=== PATIENT | male | born 1980 | race Caucasian/White ===

== ENCOUNTER 2021-08-14 20:55 | Emergency (ER) | payer MEDICAID ==
[~2021-08-14] VITALS: Ht 175.3 cm; Wt 77.1 kg
--- NOTE | 2021-08-14 22:00 | NUR ---
PATIENT BIBRA40 C/O SUICIDAL IDEATION, PLANS TO DROWN HIMSELF IN [place]. WANT TO BE ADMITTED VOLUNTARILY. PATIENT IS A/O X 3-4, RR EVEN AND UNLABORED, NO SOB NOTED.
[2021-08-14] MEDS ORDERED: IV NS 0.9% 1,000 ML BAG IV ONE (22:30)
[2021-08-14] MEDS ORDERED: LORAZEPAM 1 MG TABLET PO ONE (22:30)
--- NOTE | 2021-08-14 22:31 | NUR ---
COVID SWAB COLLECTED AND SENT TO LAB
[2021-08-14] MEDS ORDERED: LORAZEPAM 1 MG TABLET ONE (22:47)
[2021-08-14 22:49] LABS: BASOPHILS % (AUTO) 0.3 % (0.0-2.0); EOSINOPHILS % (AUTO) 0.1 % (0.0-6.0); HEMATOCRIT 44 % (39-51); HEMOGLOBIN 14.3 g/dL (13.5-17.5); LYMPHOCYTES # (AUTO) 2.1 K/uL (0.8-4.8); LYMPHOCYTES % (AUTO) 31.6 % (20.0-44.0); MEAN CORPUSCULAR HGB CONC 33 g/dl (31.0-36.0); MEAN CORPUSCULAR VOLUME 84 fL (80-96); MONOCYTES # (AUTO) 0.8 K/uL (0.1-1.30); MONOCYTES % (AUTO) 11.9 % (2.0-12.0); NEUTROPHILS # (AUTO) 3.7 K/uL (1.8-8.9); NEUTROPHILS % (AUTO) 56.1 % (43.0-81.0); PLATELET COUNT (AUTO) 281 K/uL (150-450); RED BLOOD CELL COUNT(AUTO) 5.24 MIL/uL (4.5-6.0); WHITE BLOOD COUNT (AUTO) 6.5 K/uL (4.3-11.0)
--- NOTE | 2021-08-15 02:16 | NUR ---
URINE COLLECTED SEND TO LAB
[2021-08-15 03:31] LABS: BILIRUBIN,URINE NEGATIVE (NEGATIVE); COLOR,URINE YELLOW (YELLOW); LEUKOCYTE ESTERASE ,URINE NEGATIVE (NEGATIVE); NITRITE, URINE NEGATIVE (NEGATIVE); PROTEIN,URINE NEGATIVE (NEGATIVE); UGLUCOSE NEGATIVE (NEGATIVE); UROBILINOGEN,URINE 0.2 EU/dL (0.2)
[2021-08-15] MEDS ORDERED: LORAZEPAM 1 MG TABLET PO ONE (04:00)
[2021-08-15] MEDS ORDERED: IV NS 0.9% 1,000 ML BAG IV ONE (04:00)
[2021-08-15] MEDS ORDERED: LORAZEPAM 1 MG TABLET ONE (04:23)
--- NOTE | 2021-08-15 07:42 | NUR ---
THE PATIENT IS RECEIVED IN ER BED #13. ALERT AND ORIENTED X3. DENIES PAIN. IN ROOM AIR AND DENIES SOB. RESPIRATION REGULAR AND UNLABORED. WILL CONTINUE TO MONITOR THE PATIENT.
--- NOTE | 2021-08-15 09:10 | NUR ---
VERBAL ORD TO REDRAW, CHEM SPEC, PENDING, REDRAWN AT 0900
--- NOTE | 2021-08-15 09:53 | NUR ---
SHANTI REYNA AT BEDSIDE, PATIENT VERBALIZES HE IS NOT SUICIDAL ANYMORE AND WOULD LIKE TO GO TO [place] FOR A "BUSINESS", MADE MD AWARE, SW WILL PROVIDE BUS PASS.
--- NOTE | 2021-08-15 10:05 | NUR ---
PROVIDED W [facility] DIRECTIONS GOING TO [place]
--- NOTE | 2021-08-15 10:11 | NUR ---
SW met with pt. He stated that he is no longer suicidal. Pt. expressed he wanted to go to [place]. SW provided pt. with TAP card and directions to [place]. Pt. signed homeless waiver and its placed in chart.
[2021-08-15 10:13] LABS: ALANINE AMINOTRANSFERASE 29 U/L (12-78); ALBUMIN 3.8 g/dL (3.4-5.0); ALKALINE PHOSPHATASE 55 U/L (46-116); ASPARTATE AMINOTRANSFERASE 22 U/L (15-37); BILIRUBIN,DIRECT 0.1 mg/dL (0.0-0.2); BILIRUBIN,TOTAL 0.3 mg/dL (0.2-1.0); CALCIUM, SERUM 8.8 mg/dL (8.5-10.1); CARBON DIOXIDE 29 mmol/L (21-32); CHLORIDE 103 mmol/L (98-107); CREATININE 1.2 mg/dL (0.6-1.3); GLUCOSE 68 mg/dL (74-106); POTASSIUM 3.7 mmol/L (3.5-5.1); SODIUM SERUM 141 mmol/L (136-145); TOTAL PROTEIN, SERUM 6.9 g/dL (6.4-8.2); UREA NITROGEN, BLOOD 12 mg/dL (7-18)
[2021-08-15 10:14] LABS: ACETAMINOPHEN < 10 ug/ml (10-30)
--- NOTE | 2021-08-15 10:46 | NUR ---
Note luis eduardo in [facility] - 08/15/21 at 1048 by TRAV THE PATIENT IS ALERT AND ORIENTED X4. DENIES PAIN. IN ROOM AIR AND DENIES SOB. RESPIRATION REGULAR AND UNLABORED. DENIES SI.HI. THE PATIENT HAS STABLE GAIT. THE PATIENT IS DISCHARGED IN STABLE CONDITON.
[2021-08-15 10:57] LABS: ALCOHOL, BLOOD < 3 mg/dL (0-0)
--- NOTE | 2021-08-15 11:03 | NUR ---
THE PATIENT IS ALERT AND ORIENTED X4. DENIES PAIN. IN ROOM AIR AND DENIES SOB. RESPIRATION REGULAR AND UNLABORED. DENIES SI.HI. THE PATIENT HAS STABLE GAIT. THE PATIENT IS DISCHARGED IN STABLE CONDITON.
[2021-08-15 11:04] VITALS: BP 113/90
== END 2021-08-15 11:05 | disposition home or self-care (01) ==
LOC: ER 21:01
DX: R45.851 Suicidal ideations (principal); R00.0 Tachycardia, unspecified; Z82.49 Family history of ischemic heart disease and other diseases of the circulatory system; Z59.02 Unsheltered homelessness; Z20.822 Contact with and (suspected) exposure to COVID-19
CPT/HCPCS: 36415; 80048; 80076; 80143; 80307; 80320; 81003; 84484; 85025; 87426; 93005; 96360; 99285; C9803; J7030 ×2; G0480

== ENCOUNTER 2021-08-15 20:50 | Emergency (ER) | payer MEDICAID ==
[~2021-08-15] VITALS: Ht 175.3 cm; Wt 77.1 kg
--- NOTE | 2021-08-15 22:30 | NUR ---
PATIENT DAVINA FROM [facility] C/O SI WITH PLAN TO DROWN SELF IN [place] REQUESTING VOL. ADMISSION TO [facility]. PATIENT IS A/O X 4, RR EVEN AND UNLABORED, NO SOB NOTED. PATIENT HAS STEADY GAIT. PATIENT SKIN NOTED TO BE INTACT. PATIENT PLACED IN BED WITH SITTER AT BEDSIDE.
--- NOTE | 2021-08-16 10:47 | NUR ---
PER DICK OF [facility], PT IS ACCEPTED AT [facility] UNDER DR SWANSON AND REPORT CAN BE GIVEN TO UNIT
--- NOTE | 2021-08-16 11:00 | NUR ---
REPORT GIVEN TO JAVI
--- NOTE | 2021-08-16 13:39 | NUR ---
[facility] CALLED FOR TRANSPORT ETA 75 MINS.
[2021-08-16 17:23] VITALS: BP 143/87
--- NOTE | 2021-08-16 18:06 | NUR ---
Jeimy hoff in ED - 08/16/21 at 1815 by ENEDINA PT AWAKE AND EATING DINNER. ALL NEEDS MET AT THIS TIME
--- NOTE | 2021-08-16 18:15 | NUR ---
CALLED FOR PATIENT; NO RESPONSE IN WAITING ROOM OR OUTSIDE TRIAGE AREA.
--- NOTE | 2021-08-16 18:16 | NUR ---
PATIENT ELOPED. LAST TIME PATIENT SEEN BY RN WAS 1806.
--- NOTE | 2021-08-16 22:01 | NUR ---
Jeimy hoff in [facility] - 08/16/21 at 2202 by ENEDINA NO CALL NO SHOW IN WAITING ROOM
== END 2021-08-16 18:15 | disposition left against medical advice (07) ==
LOC: ER 20:54
DX: R45.851 Suicidal ideations (principal); F32.9 Major depressive disorder, single episode, unspecified

== ENCOUNTER 2022-01-29 11:22 | Emergency (ER) | payer MEDICAID ==
[~2022-01-29] VITALS: Ht 172.7 cm; Wt 67.1 kg
--- NOTE | 2022-01-29 11:45 | NUR ---
COVID ANTIGEN SWAB DONE AND SENT TO THE LAB
--- NOTE | 2022-01-29 11:48 | NUR ---
[address] FOR SI WITH NO PLAN. (-) HI, DENIES VISUAL/AUDITORY HALLUCINATION. SECURITY CALLED AND WANDED PT, BELONGING WERE TAKEN AND SECURED. 1:[address]
--- NOTE | 2022-01-29 11:50 | NUR ---
SECURITY CALLED IN, WANDING DONE.
[2022-01-29 12:12] LABS: BASOPHILS % (AUTO) 0.3 % (0.0-2.0); EOSINOPHILS % (AUTO) 1.1 % (0.0-6.0); HEMATOCRIT 36 % (39-51); HEMOGLOBIN 11.9 g/dL (13.5-17.5); LYMPHOCYTES # (AUTO) 1.9 K/uL (0.8-4.8); LYMPHOCYTES % (AUTO) 22.9 % (20.0-44.0); MEAN CORPUSCULAR HGB CONC 33 g/dl (31.0-36.0); MEAN CORPUSCULAR VOLUME 81 fL (80-96); NEUTROPHILS # (AUTO) 5.2 K/uL (1.8-8.9); NEUTROPHILS % (AUTO) 63.7 % (43.0-81.0); PLATELET COUNT (AUTO) 318 K/uL (150-450); RED BLOOD CELL COUNT(AUTO) 4.48 MIL/uL (4.5-6.0); WHITE BLOOD COUNT (AUTO) 8.1 K/uL (4.3-11.0)
[2022-01-29 12:20] LABS: CALCIUM, SERUM 8.3 mg/dL (8.5-10.1); CARBON DIOXIDE 28 mmol/L (21-32); CHLORIDE 103 mmol/L (98-107); CREATININE 1.3 mg/dL (0.6-1.3); GLUCOSE 126 mg/dL (74-106); POTASSIUM 3.5 mmol/L (3.5-5.1); SODIUM SERUM 139 mmol/L (136-145); UREA NITROGEN, BLOOD 16 mg/dL (7-18)
[2022-01-29 12:27] LABS: ALANINE AMINOTRANSFERASE 22 U/L (12-78); ALBUMIN 3.9 g/dL (3.4-5.0); ALCOHOL, BLOOD < 3 mg/dL (0-0); ALKALINE PHOSPHATASE 64 U/L (46-116); ASPARTATE AMINOTRANSFERASE 29 U/L (15-37); BILIRUBIN,DIRECT 0.1 mg/dL (0.0-0.2); BILIRUBIN,TOTAL 0.3 mg/dL (0.2-1.0)
[2022-01-29 12:39] LABS: ACETAMINOPHEN < 10 ug/ml (10-30)
--- NOTE | 2022-01-29 14:29 | NUR ---
PT STATED THAT HE WAS NO LONGER SUICIDAL AND WANTED TO BE DISCHARGE, MD AWARE. PT LEFT WITH VERBAL DISCHARGE INSTRUCTION GIVEN. PT LEFT THE EMERGENCY WALKING IN STABLE CONDITION.
[2022-01-29 14:52] VITALS: BP 137/84
== END 2022-01-29 14:52 | disposition home or self-care (01) ==
LOC: ER 11:25
DX: R45.851 Suicidal ideations (principal); L55.0 Sunburn of first degree; Z59.00 Homelessness unspecified; Z20.822 Contact with and (suspected) exposure to COVID-19; Z53.20 Procedure and treatment not carried out because of patient's decision for unspecified reasons
CPT/HCPCS: 36415; 80048; 80076; 80143; 80320; 85025; 87426; 99285; C9803; G0480